=== PATIENT | female | born 1960 | race Caucasian/White ===

== ENCOUNTER 2016-06-29 23:46 | Inpatient (IN) ==
[2016-06-30] MEDS ORDERED: Haloperidol Lactate 5 MG/ML VIAL IM PRN (00:05)
[2016-06-30] MEDS ORDERED: traZODone 50 MG TABLET PO PRN (00:05)
[2016-06-30] MEDS ORDERED: *HR* LORazepam 1 MG TABLET PO PRN (00:05)
[2016-06-30] MEDS ORDERED: *HR* LORazepam 2 MG/ML VIAL IM PRN (00:05)
[2016-06-30] MEDS ORDERED: MOM Conc 10 ML UD.LIQ PO PRN (00:05)
[2016-06-30] MEDS ORDERED: clonazePAM 0.5 MG TABLET PO PRN (00:31)
[2016-06-30] MEDS: hydrOXYzine pamoate 25 MG CAPSULE PO PRN (01:06)
[2016-06-30] MEDS: Ondansetron ODT 4 MG TAB.RAPDIS PO PRN ×2 (01:08→12:07)
[2016-06-30] MEDS: Mag Hydrox/Al Hydrox/Simeth 30 ML UDC PO PRN ×2 (09:42→18:09)
[2016-06-30] MEDS: Biotin 5,000 MCG PO SCH (09:43)
[2016-06-30] MEDS: FOLIC ACID 0.4 MG PO SCH (09:44)
--- NOTE | 2016-06-30 10:14 | Psychiatry History & Physical ---
Date of Encounter: 06/30/16 Time of Encounter: 10:09 History of Present Illness Patient Stated Chief Complaint: "not feeling good" Medicare Admission Attestation: For traditional Medicare patients the provided hospital inpatient services are reasonable and necessary and in the case of services not specified as inpatient -only under 42 CFR 419.22 (n), that they are appropriately provided as inpatient services in accordance 42 CFR 412.3. For Critical Access Hospital the patient may reasonably be expected to be discharged or transferred to a hospital within 96 hours after admission to the Critical Access Hospital. Admitted From: Home Plans for Post Hospital Care: Home History of Present Illness: Ms. Zamorano is a 56 year old female with psychiatric hx of anxiety and depression. Admitted for SI with plan to OD on pain meds, but didnt bc she reprots she thought of her family. SHe reprots she "jsut wanted to feel better" . She reports starting to feel this way a few days after her gall bladder surgery which was begining of may and before that she reprots she was feeling very well. She reports she followed with her PCP and she reports getting put on prozac 40 mg but that didn't help and "made me feel realy sick" reports being on lexapro bc that made her "tired". Endorsed anxiety sx's Endorsed depressive sx's She reports no current issues with sleep. She reports decreased appetite due to medical issues Current meds include: klonopin 0.5 mg TID Prozac 20 mg syntroid gerd meds Past Med Surg Social Fam HX - Past Medical History Medical history: GERD, other - Past Psychiatric History Psychiatric history: Reports: anxiety, depression Past psychiatric history details: Denies inpatient hospitalizations Denies SA Denies self harm Past meds: lexapro, prozac, effexor, trazodone "bad nightmares" Current meds: klonpin, prozac Family psychiatric history: Yes Family History of Suicide: None - Past Surgical History Surgical History: breast surgery, cholecystectomy, hysterectomy - Social History Smoking Status: Never smoker Medications & Allergies Ascorbic Acid [Vitamin C] 1,000 mg PO 06/30/16 [History] Biotin 5,000 mcg PO DAILY 06/30/16 [History] Calcium Carbonate/Vitamin D3 [Liquid Calcium 600-Vit D3 Sfgl] 1 each PO DAILY [History] Cholecalciferol (Vitamin D3) [Dialyvite Vitamin D] 5,000 unit PO DAILY 06/30/16 [History] ClonazePAM [Klonopin] 0.5 mg PO Q8H PRN 06/30/16 [History] Fish Oil/Dha/Epa [Fish Oil 1,200 mg Fish Oil] 1 each PO DAILY 06/30/16 [History] Folic Acid 0.4 mg PO DAILY 06/30/16 [History] Levothyroxine [Levothyroxine Sodium] 137 mcg PO DAILY@0630 06/30/16 [History] Omeprazole 20 mg PO DAILY 06/30/16 [History] Ondansetron HCl 4 mg PO Q6H PRN 06/30/16 [History] Potassium Chloride [Klor-Con 10] 10 meq PO DAILY 06/30/16 [History] Triamterene/HCTZ 37.5/25mg [Dyazide] 1 each PO DAILY 06/30/16 [History] Vitamin B Complex 1 each PO DAILY 06/30/16 [History] Allergies adhesive tape Allergy (Verified 06/30/16 00:04) Redness of Skin Review of Systems Eyes: Denies: eye pain, eye discharge, vision change, other Ears, Nose, Throat: Denies: ear pain, throat pain, hearing loss, congestion, dysphagia Gastrointestinal: Reports: nausea, vomiting Psychiatric: Reports: depression, anxiety, abnormal sleep pattern, difficulty concentrating Mental Status Exam Patient orientation: Yes Person, Yes Time, Yes Place, Yes Circumstance Level of alertness: Alert Patient appearance: Appropriate Behavior: anxious Psychomotor activity: Normal Mood description: Depressed, Anxious Affect description: flat Speech pattern: Normal rate Speech volume: Normal Thought process: Intact Thought content: Yes Intact, No Suicidal ideation, No Homicidal ideation, No Overt delusions Attention span: Capable of Focused Attention, Capable of Sustained Attention Memory description: Grossly Intact Intelligence estimate: Average Judgment: Fair Insight: Full Results - Vital Signs Vital signs: Temp Pulse Resp BP 98.8 F 98 16 107/80 06/29/16 23:46 06/29/16 23:46 06/29/16 23:46 06/29/16 23:46 Assessment and Plan (1) Anxiety disorder Current visit: Yes Status: Acute Plan: Admit inpatient for safety and stabilization, Suicide Precautions per unit protocol, Encourage participation in unit milieu, Group Therapy, Monitor sleep, Monitor appetite, Family/Supportive other meeting Additional Plan: - dc klonopin due to being ineffective - start ativan 0.25 mg TID for anxiety - if pt tolerates med changes will start remeron 7.5 mg qhs for anxiety and insomnia tomm Risks, benefits, side effects, alternatives discussed w/pt: Yes Patient agreeable to treatment: Yes Plans for Post Hospital Care: Home Qualifiers: Anxiety disorder type: generalized anxiety disorder Qualified Code(s): F41.1 - Generalized anxiety disorder (2) Depression Current visit: Yes Status: Acute Plan: Admit inpatient for safety and stabilization, Suicide Precautions per unit protocol, Encourage participation in unit milieu, Group Therapy, Monitor sleep, Monitor appetite, Family/Supportive other meeting Additional Plan: - dc prozac due to ineffective - start celexa 10 mg at lunch for depression and anxiety Risks, benefits, side effects, alternatives discussed w/pt: Yes Patient agreeable to treatment: Yes Plans for Post Hospital Care: Home Estimated Length of Stay (Days): 3 Qualifiers: Depression Type: major depressive disorder Major depression recurrence: single episode Active/Remission status: currently active Major depression episode severity: moderate Qualified Code(s): F32.1 - Major depressive disorder, single episode, moderate
[2016-06-30] MEDS: Cholecalciferol (D-3) 1,000 UNIT TABLET PO SCH (11:13)
[2016-06-30] MEDS: Vitamin B Complex/Vit C/Vit E 1 EACH TABLET PO SCH (11:13)
[2016-06-30] MEDS: *HR* LORazepam 0.5 MG TABLET PO SCH ×3 (11:20→21:35)
[2016-07-01] MEDS: Biotin 5,000 MCG PO SCH (08:59)
[2016-07-01] MEDS: FOLIC ACID 0.4 MG PO SCH (09:00)
[2016-07-01] MEDS: Vitamin B Complex/Vit C/Vit E 1 EACH TABLET PO SCH (09:06)
[2016-07-01] MEDS: *HR* LORazepam 0.5 MG TABLET PO SCH ×3 (09:07→22:00)
[2016-07-01] MEDS: Cholecalciferol (D-3) 1,000 UNIT TABLET PO SCH (09:07)
--- NOTE | 2016-07-01 09:23 | Psychiatry Progress Note ---
Date of Encounter: 07/01/16 Time of Encounter: 09:18 Subjective Interval history: Pt seen and evaluated. Pt is not feeling as nauseous as she was yesterday. She did eat her meals. staff noteiced that her anxiety was less last night. Pt slept well with trazodone. Pt reports looking forward to going to her psychiatry appt on thursday. On pt seemed much less anxious that yesterday and staff has observed pt aniety less than yesterday. Pt has been med compliant , reports no issues wiht current meds. no prns required for agitation or aggression. Review of Systems Constitutional: Denies: fever, chills, weakness, weight change, night sweats Eyes: Denies: eye pain, eye discharge, vision change Ears, Nose, Throat: Denies: ear pain, throat pain, dental pain, hearing loss, congestion Cardiovascular: Denies: chest pain, palpitations, dyspnea on exertion, orthopnea , edema, syncope Respiratory: Denies: cough, dyspnea, wheezes, hemoptysis, stridor Psychiatric: Reports: depression, anxiety, abnormal sleep pattern, difficulty concentrating Objective: Exam Patient orientation: Yes Person, Yes Time, Yes Place, Yes Circumstance Level of alertness: Alert Patient appearance: Appropriate Behavior: anxious Psychomotor activity: Normal Mood description: Anxious Affect description: congruent with mood Speech pattern: Normal rate Speech volume: Normal Thought process: Intact Thought content: Yes Intact, No Suicidal ideation, No Homicidal ideation, No Overt delusions Judgment: Fair Insight: Full Results - Vital Signs Vital Signs: Temp Pulse Resp BP 98.6 F 94 18 103/76 06/30/16 19:29 06/30/16 19:29 06/30/16 19:29 06/30/16 19:29 Assessment and Plan (1) Anxiety disorder Current visit: Yes Status: Acute Additional Plan: 07/01: continue meds as is pt improving will hold off on remeron for now since pt slept well - dc klonopin due to being ineffective - start ativan 0.25 mg TID for anxiety - if pt tolerates med changes will start remeron 7.5 mg qhs for anxiety and insomnia tomm Risks, benefits, side effects, alternatives discussed w/pt: Yes Patient agreeable to treatment: Yes Qualifiers: Anxiety disorder type: generalized anxiety disorder Qualified Code(s): F41.1 - Generalized anxiety disorder (2) Depression Current visit: Yes Status: Acute Additional Plan: 07/01: continue meds as is will increase celexa tomm if pt continues to tolerate it well. encouarged pt to make PCP appt when dc to followup on medial issues - dc prozac due to ineffective - start celexa 10 mg at lunch for depression and anxiety Risks, benefits, side effects, alternatives discussed w/pt: Yes Patient agreeable to treatment: Yes Qualifiers: Depression Type: major depressive disorder Major depression recurrence: single episode Active/Remission status: currently active Major depression episode severity: moderate Qualified Code(s): F32.1 - Major depressive disorder, single episode, moderate Consult Discharge Plan - Plan Referrals: Evelin Guido [Other] [facility] [Outside] - 07/04/16 2:30 pm (The above appointment is with Dr. Cordero. Please arrive 15 minutes early to complete paperwork.)
[2016-07-01] MEDS: hydrOXYzine pamoate 25 MG CAPSULE PO PRN (13:35)
[2016-07-01] MEDS: Ondansetron ODT 4 MG TAB.RAPDIS PO PRN (15:16)
[2016-07-02] MEDS: Vitamin B Complex/Vit C/Vit E 1 EACH TABLET PO SCH (09:09)
[2016-07-02] MEDS: Cholecalciferol (D-3) 1,000 UNIT TABLET PO SCH (09:09)
[2016-07-02] MEDS: *HR* LORazepam 0.5 MG TABLET PO SCH ×3 (09:10→21:36)
[2016-07-02] MEDS: Biotin 5,000 MCG PO SCH (09:11)
[2016-07-02] MEDS: FOLIC ACID 0.4 MG PO SCH (09:11)
[2016-07-02] MEDS: Ascorbic Acid 500 MG TABLET PO SCH (09:25)
--- NOTE | 2016-07-02 10:27 | Psychiatry Progress Note ---
Date of Encounter: 07/02/16 Time of Encounter: 10:24 Subjective Interval history: Patient seen and evaluated this morning. Patient seemed very much less anxious and better groomed than admission. The patient reports that she feels she is doing "okay" she reports that she does feel like her anxiety has improved since admission. She reports not having as many somatic symptoms that she did on admission. Patient reports that she is very much looking forward to going to her psychiatry appointment on Thursday. Per staff patient was tearful yesterday due to her missing her animals. But was easily redirectable. Patient reports that she feels like her medical issues were a lot of the reason for her anxiety. This provider encouraged patient to make a follow-up appointment with her primary care physician and body former due to patient wanting some more answers regarding her potassium and her thyroid hormones. This provider suggested if patient wanted to run her labs while she was here but patient refused and stated she would like to do this with her outpatient providers. At the time of evaluation patient denied SI or HI no acute overt psychosis was noted. Patient's vitals have been stable. Patient has been attending groups and socializing with peers and has been eating all her meals. Patient reports that her sleep was "okay" reports that it is hard when people are going in and out. Patient has been medication compliant. Patient reports no side effects or issues with current medication. pt reports feeling stable for dc tomm and reports she feels that her anxiety is better under control. discussed also increasing celexa 20 mg qday chidi trini pt was agreeable to this. Review of Systems Constitutional: Denies: fever, chills, weakness, weight change, night sweats Psychiatric: Reports: anxiety, abnormal sleep pattern. Denies: suicidal ideation, homicidal ideation, auditory hallucinations Objective: Exam Patient orientation: Yes Person, Yes Time, Yes Place, Yes Circumstance Level of alertness: Alert Patient appearance: Appropriate Behavior: nervous Psychomotor activity: Normal Mood description: Euthymic/stable Affect description: congruent with mood Speech pattern: Normal rate Speech volume: Normal Thought process: Intact Thought content: Yes Intact, No Suicidal ideation, No Homicidal ideation, No Overt delusions Judgment: Fair Insight: Full Results - Vital Signs Vital Signs: Temp Pulse Resp BP 98 F 88 16 120/80 07/02/16 08:33 07/02/16 08:33 07/02/16 08:33 07/02/16 08:33 Assessment and Plan (1) Anxiety disorder Current visit: Yes Status: Acute Additional Plan: 07/01: continue meds as is pt improving will hold off on remeron for now since pt slept well - dc klonopin due to being ineffective - start ativan 0.25 mg TID for anxiety - if pt tolerates med changes will start remeron 7.5 mg qhs for anxiety and insomnia tomm Risks, benefits, side effects, alternatives discussed w/pt: Yes Patient agreeable to treatment: Yes Qualifiers: Anxiety disorder type: generalized anxiety disorder Qualified Code(s): F41.1 - Generalized anxiety disorder (2) Depression Current visit: Yes Status: Acute Additional Plan: 07/02: increase celexa 20 mg qday for onging anxiety and depression sx's 07/01: continue meds as is will increase celexa tomm if pt continues to tolerate it well. encouarged pt to make PCP appt when dc to followup on medial issues - dc prozac due to ineffective - start celexa 10 mg at lunch for depression and anxiety Risks, benefits, side effects, alternatives discussed w/pt: Yes Patient agreeable to treatment: Yes Qualifiers: Depression Type: major depressive disorder Major depression recurrence: single episode Active/Remission status: currently active Major depression episode severity: moderate Qualified Code(s): F32.1 - Major depressive disorder, single episode, moderate Consult Discharge Plan - Plan Referrals: Evelin Guido [Other] - 07/07/16 1:00 pm (This appointment is with Evelin Guido for counseling.) [facility] [Outside] - 07/04/16 2:30 pm (The above appointment is with Dr. Cordero. Please arrive 15 minutes early to complete paperwork.)
[2016-07-02] MEDS: Ondansetron ODT 4 MG TAB.RAPDIS PO PRN (10:53)
[2016-07-02] MEDS: hydrOXYzine pamoate 25 MG CAPSULE PO PRN (12:07)
[2016-07-03] MEDS: Ascorbic Acid 500 MG TABLET PO SCH (08:12)
[2016-07-03] MEDS: *HR* LORazepam 0.5 MG TABLET PO SCH (08:13)
[2016-07-03] MEDS: Cholecalciferol (D-3) 1,000 UNIT TABLET PO SCH (08:13)
[2016-07-03] MEDS: Vitamin B Complex/Vit C/Vit E 1 EACH TABLET PO SCH (08:13)
[2016-07-03] MEDS: Biotin 5,000 MCG PO SCH (08:17)
[2016-07-03] MEDS: FOLIC ACID 0.4 MG PO SCH (08:17)
--- NOTE | 2016-07-03 09:18 | Discharge Summary ---
Date of Encounter: 07/03/16 Time of Encounter: 09:10 Diagnosis - Discharge Diagnosis (1) Anxiety disorder Status: Acute Qualifiers: Anxiety disorder type: generalized anxiety disorder Qualified Code(s): F41.1 - Generalized anxiety disorder (2) Depression Status: Acute Qualifiers: Depression Type: major depressive disorder Major depression recurrence: single episode Active/Remission status: currently active Major depression episode severity: moderate Qualified Code(s): F32.1 - Major depressive disorder, single episode, moderate Medications - Discharge Medications Prescriptions: Citalopram [CeleXA] 20 mg PO DAILY #30 tablet HydrOXYzine Pamoate 25 mg PO TID PRN #90 capsule PRN Reason: Anxiety LORazepam [Ativan] 0.25 mg PO TID #90 tablet TraZODone 50 mg PO HS PRN #30 tablet PRN Reason: Insomnia Ascorbic Acid [Vitamin C] 1,000 mg PO DAILY 06/30/16 [History] Biotin 5,000 mcg PO DAILY 06/30/16 [History] Calcium Carbonate/Vitamin D3 [Liquid Calcium 600-Vit D3 Sfgl] 1 cap PO DAILY [History] Cholecalciferol (Vitamin D3) [Dialyvite Vitamin D] 5,000 unit PO DAILY 06/30/16 [History] Folic Acid 0.4 mg PO DAILY 06/30/16 [History] Potassium Chloride [Klor-Con 10] 10 meq PO DAILY 06/30/16 [History] Vitamin B Complex 1 cap PO DAILY 06/30/16 [History] Citalopram [CeleXA] 20 mg PO DAILY #30 tablet 07/03/16 [Rx] HydrOXYzine Pamoate 25 mg PO TID PRN #90 capsule 07/03/16 [Rx] LORazepam [Ativan] 0.25 mg PO TID #90 tablet 07/03/16 [Rx] Levothyroxine [Levothyroxine Sodium] 137 mcg PO DAILY@0630 tablet 07/03/16 [Rx] Omeprazole [PriLOSEC] 20 mg PO 0630 capsule.dr 07/03/16 [Rx] Potassium Chloride 10 meq PO DAILY tab.er.prt 07/03/16 [Rx] TraZODone 50 mg PO HS PRN #30 tablet 07/03/16 [Rx] Triamterene/HCTZ 37.5/25mg [Dyazide] 1 each PO DAILY tablet 07/03/16 [Rx] Allergies adhesive tape Allergy (Verified 06/30/16 00:04) Redness of Skin Provider Date of admission: 06/29/16 23:46 Primary care physician: PCP NO Consults: 06/30/16 00:37 Consult to Pastoral Services [CONS] Routine Comment: Discharging clinician: Ilya Brian Assessment and Plan - Patient/Caregiver Discharge Instructions Activity: resume usual activities as tolerated, increase activity as tolerated, return to work, return to work once cleared by outpatient provider Diet: regular diet, low fat, low cholesterol - Follow up Plan Follow up with: Evelin Guido [Other] - 07/07/16 1:00 pm (This appointment is with Evelin Guido for counseling.) [facility] [Outside] - 07/04/16 2:30 pm (The above appointment is with Dr. Cordero. Please arrive 15 minutes early to complete paperwork.) Functional capacity at discharge: independent ambulation Overall status at discharge: patient is progressing back to baseline Disposition: Home, Self-Care Hospital Course Hospital course: Ms. Zamorano is a 56 year old female with psychiatric hx of depression and generalized anxiety disorder admitted to behavioral health unit for ongoing anxiety. Pt reported since her gallbladder surgery her anxiety has been uncontrollable. Pt was admitted for SI with plan to overdose on pain meds, but didnt bc she repots she thought of her fmaily. She reports she "just wanted to feel better". She reports starting to feel this way a few days after her gallbladder surgery which was beginning of May 2016 and before that she reported she was feeling very well. She reports she followed with her primary care physician and she reported getting put on Prozac but that did not help and reports being on Lexapro in the past that made her "tired". During her hospitalization we discussed discontinuation of Prozac due to it being ineffective in starting Celexa. Celexa was titrated up to 20 mg with the time of patient's discharge and she tolerated this well with no side effects patient felt that this was helping her anxiety and depression since her admission. We also discussed discontinuing the Klonopin due to it being ineffective and starting Ativan 0.253 times a day for further anxiety symptom control. Patient also tolerated this well with no side effects. Patient reported looking forward to her outpatient psychiatry appointment on Thursday and reported she would really like to get set up since she has been waiting for this appointment. chute worker contacted on patient's family to make sure there is no safety concerns with today denied and reported that they would be administering patient's meds and have a lock box. Treatment team was done and discussion was made for discharge patient home and follow-up with med management and counseling outpatient. While in hospital patient attended groups and activities and socializing with peers appetite fair sleep and good. Patient denied SI or HI and no overt psychosis was noted up on discharge. Time spent discussing smoking cessation with patient: 3 to 10 minutes Does patient wish to continue nicotine replacement upon disc: No - Time Spent with Patient Total time spent providing and/or coordinating discharge services: Less than 30 minutes Quality - Multiple Antipsychotics Patient discharged on 2 or more antipsychotic medications: No Procedures - Procedures Procedures: Medication Management, Supportive Therapy, Group Therapy Mental Status Exam - Mental Status Exam Patient orientation: Yes Person, Yes Time, Yes Place, Yes Circumstance Level of alertness: Alert Patient appearance: Appropriate Behavior: calm Psychomotor activity: Normal Mood description: Euthymic/stable Affect description: congruent with mood Speech pattern: Normal rate Speech Volume: Normal Thought process: Intact Thought Content: Yes Intact, No Suicidal ideation, No Homicidal ideation, No Overt delusions Judgment: Fair Insight: Full
[2016-07-03 09:26] VITALS: BP 125/91
== END 2016-07-03 11:45 | disposition home or self-care (01) | DRG 880 ==
LOC: 1ANU 23:46 → SUATTDRO 23:46
PROVIDERS: ADMIT Psychiatry & Neurology Psychiatry; ATTEND Psychiatry & Neurology Psychiatry